=== PATIENT | female | born 1985 | race Caucasian/White ===

== ENCOUNTER 2018-03-21 17:34 | Emergency (ER) | payer OTHER ==
[2018-03-21] MEDS ORDERED: Sodium Chloride 0.9% 1000 ML 1,000 ML IV STA ×2 (18:40→21:18)
--- NOTE | 2018-03-21 18:40 | ERPHSYRPT ---
- History of Present Illness Time Seen by Provider: 03/21/18 18:15 Historian: patient, family Exam Limitations: no limitations Physician History: 32 y/o white female presents with one week h/o diarrhea and crampy abd pain. no vomiting. no fevers. denies cough, cp, sore throat or earaches. no travel outside [place], no recent camping, does not consume well water. no other individuals with similar sx. Timing/Duration: day(s) (7) Activities at Onset: none Quality: cramping Abdominal Pain Onset Location: generalized abdomen Pain Radiation: no radiation Severity of Pain-Max: mild Severity of Pain-Current: mild Modifying Factors: Worsens With: coughing, vomiting Associated Symptoms: diarrhea, No nausea, No vomiting Previous symptoms: no prior history Allergies/Adverse Reactions: latex Allergy (Mild, Verified 12/15/14 17:18) Hives Hx Tetanus, Diphtheria Vaccination/Date Given: No Hx Influenza Vaccination/Date Given: No Hx Pneumococcal Vaccination/Date Given: No - Review of Systems Constitutional: No Symptoms Eyes: No Symptoms Ears, Nose, & Throat: No Symptoms Respiratory: No Symptoms Cardiac: No Symptoms Abdominal/Gastrointestinal: Abdominal Pain (mild cramping ), Diarrhea, No Nausea , No Vomiting Genitourinary Symptoms: No Symptoms Musculoskeletal: No Symptoms Skin: No Symptoms Neurological: No Symptoms Psychological: No Symptoms Endocrine: No Symptoms Hematologic/Lymphatic: No Symptoms Immunological/Allergic: No Symptoms All Other Systems: Reviewed and Negative - Past Medical History Pertinent Past Medical History: No Neurological History: No Pertinent History ENT History: No Pertinent History Cardiac History: No Pertinent History Respiratory History: No Pertinent History Endocrine Medical History: No Pertinent History Musculoskeletal History: No Pertinent History GI Medical History: No Pertinent History History: No Pertinent History Psycho-Social History: No Pertinent History Female Reproductive Disorders: No Pertinent History - Past Surgical History Past Surgical History: Yes Neuro Surgical History: No Pertinent History Cardiac: No Pertinent History Respiratory: No Pertinent History Gastrointestinal: No Pertinent History Genitourinary: No Pertinent History Musculoskeletal: No Pertinent History Female Surgical History: No Pertinent History 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 AT 16- CYST REMOVED FROM THE THROAT - Social History Smoking Status: Never smoker Exposure to second hand smoke: No Drug Use: none Patient Lives Alone: No - Nursing Vital Signs Nursing Vital Signs: Initial Vital Signs Temperature 98.5 F 03/21/18 18:34 Pulse Rate 83 03/21/18 18:34 Respiratory Rate 16 03/21/18 18:34 Blood Pressure 137/67 03/21/18 18:34 O2 Sat by Pulse Oximetry 100 03/21/18 18:34 Pain Scale Pain Intensity 6 - Physical Exam General Appearance: no apparent distress, alert, anxiety Eye Exam: PERRL/EOMI, eyes nml inspection Ears, Nose, Throat Exam: normal ENT inspection, moist mucous membranes Neck Exam: normal inspection, non-tender, supple, full range of motion Respiratory Exam: normal breath sounds, lungs clear, airway intact, No chest tenderness, No respiratory distress, No accessory muscle use, No rhonchi, No wheezing, No stridor Cardiovascular Exam: regular rate/rhythm, normal heart sounds, normal peripheral pulses Gastrointestinal/Abdomen Exam: soft, normal bowel sounds, No tenderness, No guarding, No rebound Pelvic Exam: not done Rectal Exam: not done Back Exam: normal inspection, normal range of motion, No CVA tenderness, No vertebral tenderness Extremity Exam: normal inspection, normal range of motion, pelvis stable Neurologic Exam: alert, oriented x 3, cooperative, wrapper counter II-XII nml as tested Skin Exam: normal color, warm, dry Lymphatic Exam: No adenopathy SpO2 Interpretation: normal Oxygen Delivery: Room Air - Course Nursing assessment & vital signs reviewed: Yes Ordered Tests: Active Orders 24 hr Category Date Time Status Clean Catch Urine Specimen STAT Care 03/21/18 18:40 Active IV Insertion STAT Care 03/21/18 18:40 Active NPO (ED) STAT Care 03/21/18 18:40 Active ABDOMEN AND PELVIS W/0 CONTRAS [CT] Stat Exams 03/21/18 19:15 Taken AMYLASE Stat Lab 03/21/18 18:50 Completed CBC W DIFF Stat Lab 03/21/18 18:50 Completed CMP Stat Lab 03/21/18 18:50 Completed CULTURE,URINE Stat Lab 03/21/18 18:50 Received LIPASE Stat Lab 03/21/18 18:50 Completed Lactic Acid Stat Lab 03/21/18 19:00 Completed UA W/RFX UR CULTURE Stat Lab 03/21/18 18:50 Completed Medication Summary Discontinued Medications Generic Name Dose Route Start Last Admin Trade Name Freq PRN Reason Stop Dose Admin Sodium Chloride 1,000 mls @ 999 mls/hr 03/21/18 18:40 03/21/18 20:51 Sodium Chloride 0.9% 1000 Ml IV 03/21/18 19:40 Infused .Q1H1M STA Infusion Sodium Chloride Confirm 03/21/18 18:48 Sodium Chloride 0.9% 1000 Ml Administered 03/21/18 18:49 Dose 1,000 mls @ ud .ROUTE .STK-MED ONE Lab/Rad Data: Laboratory Result Diagrams 03/21/18 18:50 03/21/18 18:50 Laboratory Results 03/21/18 03/21/18 03/21/18 Range/Units 19:00 18:50 18:50 WBC (4.0-10.5) K/mm3 RBC (4.1-5.4) M/mm3 Hgb (12.0-16.0) gm/dl Hct (35-47) % MCV (78-100) fl MCH (26-32) pg MCHC (32-36) g/dl RDW (11.5-14.0) % Plt Count (150-450) K/mm3 MPV (6-9.5) fl Gran % (36.0-66.0) % Eos # (Auto) (0-0.5) Absolute Lymphs (auto) (1.0-4.6) Absolute Monos (auto) (0.0-1.3) Lymphocytes % (24.0-44.0) % Monocytes % (0.0-12.0) % Eosinophils % (0.00-5.0) % Basophils % (0.0-0.4) % Absolute Granulocytes (1.4-6.9) Basophils # (0-0.4) Sodium 139 (137-145) mmol/L Potassium 4.0 (3.5-5.1) mmol/L Chloride 104 (98-107) mmol/L Carbon Dioxide 27 (22-30) mmol/L Anion Gap 12.9 (5-15) MEQ/L BUN 12 (7-17) mg/dL Creatinine 0.67 (0.52-1.04) mg/dL Estimated GFR > 60.0 ML/MIN Glucose 100 (74-106) mg/dL Lactic Acid 0.7 (0.4-2.0) Calcium 9.7 (8.4-10.2) mg/dL Total Bilirubin 0.70 (0.2-1.3) mg/dL AST 17 (14-36) U/L ALT 18 (0-35) U/L Alkaline Phosphatase 88 (38-126) U/L Serum Total Protein 8.6 H (6.3-8.2) g/dL Albumin 4.5 (3.5-5.0) g/dL Amylase 47 (30-110) U/L Lipase 67 (23-300) U/L Urine Color YELLOW (YELLOW) Urine Appearance SLIGHTLY CLOUDY (CLEAR) Urine pH 5.0 (5-6) Ur Specific [place] 1.026 (1.005-1.025) Urine Protein NEGATIVE (Negative) Urine Ketones NEGATIVE (NEGATIVE) Urine Blood SMALL (0-5) Jeyson/ul Urine Nitrite NEGATIVE (NEGATIVE) Urine Bilirubin NEGATIVE (NEGATIVE) Urine Urobilinogen NEGATIVE (0-1) mg/dL Ur Leukocyte Esterase NEGATIVE (NEGATIVE) Urine WBC (Auto) 6-10 (0-5) /HPF Urine RBC (Auto) 6-10 (0-2) /HPF U Epithel Cells (Auto) MODERATE (FEW) /HPF Urine Bacteria (Auto) FEW (NEGATIVE) /HPF Urine Mucus (Auto) SLIGHT (NEGATIVE) /HPF Urine Culture Reflexed YES (NO) Urine Glucose NEGATIVE (NEGATIVE) mg/dL Slides for Path Review 03/21/18 Range/Units 18:50 WBC 19.3 H (4.0-10.5) K/mm3 RBC 4.58 (4.1-5.4) M/mm3 Hgb 13.7 (12.0-16.0) gm/dl Hct 41.4 (35-47) % MCV 90.4 (78-100) fl MCH 29.9 (26-32) pg MCHC 33.1 (32-36) g/dl RDW 14.0 (11.5-14.0) % Plt Count 580 H (150-450) K/mm3 MPV 11.1 H (6-9.5) fl Gran % 63.1 (36.0-66.0) % Eos # (Auto) 0.25 (0-0.5) Absolute Lymphs (auto) 4.43 (1.0-4.6) Absolute Monos (auto) 2.39 H (0.0-1.3) Lymphocytes % 23.0 L (24.0-44.0) % Monocytes % 12.4 H (0.0-12.0) % Eosinophils % 1.3 (0.00-5.0) % Basophils % 0.2 (0.0-0.4) % Absolute Granulocytes 12.19 H (1.4-6.9) Basophils # 0.03 (0-0.4) Sodium (137-145) mmol/L Potassium (3.5-5.1) mmol/L Chloride (98-107) mmol/L Carbon Dioxide (22-30) mmol/L Anion Gap (5-15) MEQ/L BUN (7-17) mg/dL Creatinine (0.52-1.04) mg/dL Estimated GFR ML/MIN Glucose (74-106) mg/dL Lactic Acid (0.4-2.0) Calcium (8.4-10.2) mg/dL Total Bilirubin (0.2-1.3) mg/dL AST (14-36) U/L ALT (0-35) U/L Alkaline Phosphatase (38-126) U/L Serum Total Protein (6.3-8.2) g/dL Albumin (3.5-5.0) g/dL Amylase (30-110) U/L Lipase (23-300) U/L Urine Color (YELLOW) Urine Appearance (CLEAR) Urine pH (5-6) Ur Specific [place] (1.005-1.025) Urine Protein (Negative) Urine Ketones (NEGATIVE) Urine Blood (0-5) Jeyson/ul Urine Nitrite (NEGATIVE) Urine Bilirubin (NEGATIVE) Urine Urobilinogen (0-1) mg/dL Ur Leukocyte Esterase (NEGATIVE) Urine WBC (Auto) (0-5) /HPF Urine RBC (Auto) (0-2) /HPF U Epithel Cells (Auto) (FEW) /HPF Urine Bacteria (Auto) (NEGATIVE) /HPF Urine Mucus (Auto) (NEGATIVE) /HPF Urine Culture Reflexed (NO) Urine Glucose (NEGATIVE) mg/dL Slides for Path Review YES - Progress Progress: improved (mild), pain not gone completely, re-examined Progress Note: 03/21/18 21:12 pt clinically slowly improved. ct scan abd/pelvis shows picture c/w mesenteric adenitis. however, there is mention of of bowel wall thickening which may be due to nondistension. however, pts wbc is >19,000. therefore, i will tx as colitis. Counseled pt/family regarding: lab results, diagnosis, need for follow-up, rad results - Departure Time of Disposition: 21:15 Departure Disposition: Home Clinical Impression: Colitis, Leukocytosis Condition: Stable Critical Care Time: No Referrals: TRACY WRAY MD [Primary Care Provider] - Additional Instructions: clear liquid diet for 24 hours. advance slowly. follow up with primary doctor if symptoms persist. return to ED for worsening symptoms Prescriptions: Hydrocodone/APAP 5/325 [[place] 5/325 mg] 1 each PO Q8H PRN PRN #10 tablet MDD 3 PRN Reason: Pain Ciprofloxacin [Cipro 500 MG] 500 mg PO BID #14 tablet Metronidazole 500 mg [Flagyl 500 MG] 500 mg PO TID #21 tablet
[2018-03-21] MEDS ORDERED: Sodium Chloride 0.9% 1000 ML 1,000 ML ONE ×2 (18:48→21:39)
[2018-03-21 19:03] LABS: BASOPHIL % 0.2 % (0.0-0.4); Basophil (Absolute #) 0.03 (0-0.4); Eosinophil % 1.3 % (0.00-5.0); Eosinophil (Absolute #) 0.25 (0-0.5); Granulocyte Absolute (ANC) 12.19 (1.4-6.9); Granulocytes % 63.1 % (36.0-66.0); Hematocrit 41.4 % (35-47); Hemoglobin 13.7 gm/dl (12.0-16.0); Lymphocyte (Absolute #) 4.43 (1.0-4.6); Mean Cell Volume 90.4 fl (78-100); Mean Corpuscular Hemoglobin 29.9 pg (26-32); Mean Corpuscular Hgb Concent. 33.1 g/dl (32-36); Mean Platelet Volume 11.1 fl (6-9.5); Monocyte (Absolute #) 2.39 (0.0-1.3); Monocytes % 12.4 % (0.0-12.0); Platelet Count 580 K/mm3 (150-450); Red Blood Count 4.58 M/mm3 (4.1-5.4); White Blood Count 19.3 K/mm3 (4.0-10.5)
[2018-03-21 19:04] LABS: Appearance SLIGHTLY CLOUDY (CLEAR); Bilirubin NEGATIVE (NEGATIVE); Blood SMALL Ery/ul (0-5); Glucose NEGATIVE (NEGATIVE); Ketones NEGATIVE (NEGATIVE); Leukocyte Esterase NEGATIVE (NEGATIVE); Nitrite NEGATIVE (NEGATIVE); Protein,Urine Dip NEGATIVE (Negative); Specific Gravity 1.026 (1.005-1.025); Urobilinogen NEGATIVE mg/dL (0-1)
[2018-03-21 19:14] LABS: ALBUMIN 4.5 g/dL (3.5-5.0); ALKALINE PHOSPHATASE 88 U/L (38-126); AMYLASE 47 U/L (30-110); ANION GAP 12.9 MEQ/L (5-15); BLOOD UREA NITROGEN 12 mg/dL (7-17); CHLORIDE 104 mmol/L (98-107); Calcium 9.7 mg/dL (8.4-10.2); Carbon Dioxide 27 mmol/L (22-30); Creatinine 1 0.67 mg/dL (0.52-1.04); Glucose 100 mg/dL (74-106); LIPASE 67 U/L (23-300); SGOT/AST 17 U/L (14-36); SGPT/ALT 18 U/L (0-35); SODIUM 139 mmol/L (137-145); Total Protein 8.6 g/dL (6.3-8.2)
[2018-03-21 20:58] LABS: Slide Review 1 YES
[2018-03-21] MEDS ORDERED: Hydromorphone 1 mg/ml Ampule IV ONE (21:17)
[2018-03-21] MEDS ORDERED: Flagyl 500 MG PO ONE (21:18)
[2018-03-21] MEDS ORDERED: Cipro 500 MG PO ONE (21:18)
[2018-03-21] MEDS ORDERED: Zofran 4 MG/2 ML VIAL IV ONE (21:28)
[2018-03-21] MEDS ORDERED: Flagyl 500 MG ONE (21:39)
[2018-03-21] MEDS ORDERED: Zofran 4 MG/2 ML VIAL ONE (21:39)
[2018-03-21] MEDS ORDERED: Hydromorphone 1 mg/ml Ampule ONE (21:42)
[2018-03-21] MEDS ORDERED: Cipro 500 MG ONE (21:42)
[2018-03-21 21:55] VITALS: PULSE 65
--- NOTE | 2018-03-21 22:33 | XRAY ---
Indication: General abdominal pain. Diarrhea. Elevated WBC. Multiple contiguous axial images obtained through the abdomen and pelvis without contrast as ordered. Comparison: None. Lung bases demonstrates minimal bibasilar dependent atelectasis and left base calcified granuloma. No infiltrate or effusion. Heart is not enlarged. Small hiatal hernia. Noncontrasted stomach and bowel loops appear nonobstructed. Normal appendix. No free fluid/air. Previous splenectomy. Multiple scattered subcentimeter mesenteric nodes favoring adenitis. Remaining liver, gallbladder, pancreas, adrenal glands, kidneys, ureters, bladder, uterus, and aorta appear unremarkable for noncontrast exam. Osseous structures intact. No ventral or inguinal hernias. Impression: 1. Scattered small mesenteric nodes favoring mesenteric adenitis. 2. Small hiatal hernia. 3. Remaining CT abdomen/pelvis without contrast exam is negative. Comment: Preliminary interpretation was made by [facility]. No critical discrepancy. CTDI 21.34
[2018-03-21 22:53] VITALS: BP 132/98; O2SAT 98
== END 2018-03-21 23:22 | disposition home or self-care (01) ==
LOC: ED 17:34
DX: K52.9 Noninfective gastroenteritis and colitis, unspecified (principal); D72.829 Elevated white blood cell count, unspecified; R10.84 Generalized abdominal pain
CPT/HCPCS: 36000; 36415; 74176; 80053; 81001; 82150; 83605; 83690; 85025; 87086; 96360; 96374; 96375; 99284; J1170; J2405; A9270-GY

== ENCOUNTER 2018-04-09 20:35 | Emergency (ER) | payer OTHER ==
[2018-04-09] MEDS ORDERED: Sodium Chloride 0.9% 1000 ML 1,000 ML IV STA (21:00)
[2018-04-09] MEDS ORDERED: Sodium Chloride 0.9% 1000 ML 1,000 ML ONE (21:03)
--- NOTE | 2018-04-09 21:05 | ERPHSYRPT ---
- History of Present Illness Time Seen by Provider: 04/09/18 20:57 Historian: patient Exam Limitations: no limitations Patient Subjective Stated Complaint: pt is alert and oriented. pt is ambulatory with a steady gait. pt states that she has been having diarrhea for a month and began having vomiting this afternoon. pt states that she has vomited 3-4 times. pt bowel sounds present and active x4. pt abdomen tender to palpation on right upper and lower quadrants. Triage Nursing Assessment: see above Physician History: 32-year-old white female who was seen here on March 21, 2018 secondary to diarrhea, diagnosed with mesenteric adenitis placed on Cipro and Flagyl. And has subsequently been seen by her family doctor 2 days ago told that she has a colitis and states that her family doctor's trying to schedule her an for endoscopy. Arrives with complaints of continued diarrhea she states she vomited one time today she states she is having lower abdominal pain in the right lower and left lower abdomen. Past medical history is negative. Past surgical history splenectomy, cyst removed from her throat. Social history denies tobacco alcohol or illicit drug use Timing/Duration: other (symptoms for a month) Quality: cramping Abdominal Pain Onset Location: RLQ, LLQ Severity of Pain-Max: moderate Severity of Pain-Current: mild Modifying Factors: Improves With: vomiting (vomited one time today). Worsens With: analgesics, antacids, breathing, coughing, defecating, eating, exercise, lying down, movement, palpation, rest, urinating, position, walking Associated Symptoms: diarrhea, nausea, vomiting, No back, No chest pain, No diaphoresis, No fever/chills, No fatigue, No headache, No heartburn, No loss of appetite, No neck pain, No rash, No shortness of breath, No syncope, No weakness Previous symptoms: same symptoms as today (seen by this ER March 21 for same , seen by her family doctor 2 days ago for same) Allergies/Adverse Reactions: latex Allergy (Mild, Verified 12/15/14 17:18) Hives shellfish derived Allergy (Verified 04/09/18 20:55) Hx Tetanus, Diphtheria Vaccination/Date Given: No Hx Influenza Vaccination/Date Given: No Hx Pneumococcal Vaccination/Date Given: No Immunizations Up to Date: Yes - Review of Systems Constitutional: No Fever, No Chills Eyes: No Symptoms Ears, Nose, & Throat: No Symptoms Respiratory: No Cough, No Dyspnea Cardiac: No Chest Pain, No Edema, No Syncope Abdominal/Gastrointestinal: Abdominal Pain (Lower abdominal pain), Nausea, Vomiting, Diarrhea Genitourinary Symptoms: No Dysuria Musculoskeletal: No Back Pain, No Neck Pain Skin: No Rash Neurological: No Dizziness, No Focal Weakness, No Sensory Changes Psychological: No Symptoms Endocrine: No Symptoms All Other Systems: Reviewed and Negative - Past Medical History Pertinent Past Medical History: No Neurological History: No Pertinent History ENT History: No Pertinent History Cardiac History: No Pertinent History Respiratory History: No Pertinent History Endocrine Medical History: No Pertinent History Musculoskeletal History: No Pertinent History GI Medical History: Colitis History: No Pertinent History Psycho-Social History: No Pertinent History Female Reproductive Disorders: No Pertinent History - Past Surgical History Past Surgical History: Yes Neuro Surgical History: No Pertinent History Cardiac: No Pertinent History Respiratory: No Pertinent History Gastrointestinal: No Pertinent History Genitourinary: No Pertinent History Musculoskeletal: No Pertinent History Female Surgical History: No Pertinent History 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 AT 16- CYST REMOVED FROM THE THROAT - Social History Smoking Status: Never smoker Exposure to second hand smoke: No Drug Use: none Patient Lives Alone: No - Female History Hx Last Menstrual Period: 04/09/18 Hx Now: No - Nursing Vital Signs Nursing Vital Signs: Initial Vital Signs Temperature 98.2 F 04/09/18 20:47 Pulse Rate 75 04/09/18 20:47 Respiratory Rate 16 04/09/18 20:47 Blood Pressure 137/80 04/09/18 20:47 O2 Sat by Pulse Oximetry 96 04/09/18 20:47 Pain Scale Pain Intensity 7 - Physical Exam General Appearance: no apparent distress, alert Eye Exam: PERRL/EOMI, eyes nml inspection Ears, Nose, Throat Exam: normal ENT inspection, pharynx normal, moist mucous membranes Neck Exam: normal inspection, non-tender, supple, full range of motion Respiratory Exam: normal breath sounds, lungs clear, No respiratory distress Cardiovascular Exam: regular rate/rhythm, normal heart sounds Gastrointestinal/Abdomen Exam: soft, normal bowel sounds, tenderness (tender in the lower abdomen with palpation), No distention, No mass, No guarding, No ecchymosis, No pulsatile mass, No rebound, No hernia, No hepatomegaly, No organomegaly, No splenomegaly Back Exam: normal inspection, normal range of motion, No CVA tenderness, No vertebral tenderness Extremity Exam: normal inspection, normal range of motion, pelvis stable Neurologic Exam: alert, oriented x 3, cooperative, nib finisher II-XII nml as tested, normal mood/affect, nml cerebellar function, sensation nml, No motor deficits Skin Exam: normal color, warm, dry SpO2 Interpretation: normal (96%) SpO2: 96 Oxygen Delivery: Room Air - Course Nursing assessment & vital signs reviewed: Yes - CT Exams Abdomen/Pelvis CT Interpretation: Tele-radiologist Report (CT abdomen and pelvis: Impression 1 mild descending and sigmoid colon wall thickening suggestive of colitis.2. Left lower lobe calcified granulomas.), appendicitis Ordered Tests: Active Orders 24 hr Category Date Time Status IV Insertion STAT Care 04/09/18 20:56 Active ABDOMEN AND PELVIS W/0 CONTRAS [CT] Stat Exams 04/09/18 22:11 Taken AMYLASE Stat Lab 04/09/18 21:15 Completed CBC W DIFF Stat Lab 04/09/18 21:15 Completed CMP Stat Lab 04/09/18 21:15 Completed CULTURE,URINE Stat Lab 04/09/18 21:20 Received HCG QUALITATIVE,SERUM Stat Lab 04/09/18 21:15 Completed LIPASE Stat Lab 04/09/18 21:15 Completed UA W/RFX UR CULTURE Stat Lab 04/09/18 21:20 Completed Medication Summary Discontinued Medications Generic Name Dose Route Start Last Admin Trade Name Freq PRN Reason Stop Dose Admin Sodium Chloride 1,000 mls @ 999 mls/hr 04/09/18 21:00 04/09/18 22:07 Sodium Chloride 0.9% 1000 Ml IV 04/09/18 22:00 Infused .Q1H1M STA Infusion Sodium Chloride Confirm 04/09/18 21:03 Sodium Chloride 0.9% 1000 Ml Administered 04/09/18 21:04 Dose 1,000 mls @ ud .ROUTE .STK-MED ONE Metronidazole 500 mg 04/09/18 23:53 04/10/18 00:07 Flagyl 500 Mg PO 04/09/18 23:54 500 mg STAT ONE Administration Metronidazole Confirm 04/10/18 00:07 Flagyl 500 Mg Administered 04/10/18 00:08 Dose 500 mg .ROUTE .STK-MED ONE Lab/Rad Data: Laboratory Result Diagrams 04/09/18 21:15 01/12/19 21:15 Laboratory Results 04/09/18 04/09/18 04/09/18 Range/Units 21:20 21:15 21:15 WBC (4.0-10.5) K/mm3 RBC (4.1-5.4) M/mm3 Hgb (12.0-16.0) gm/dl Hct (35-47) % MCV (78-100) fl MCH (26-32) pg MCHC (32-36) g/dl RDW (11.5-14.0) % Plt Count (150-450) K/mm3 MPV (6-9.5) fl Gran % (36.0-66.0) % Eos # (Auto) (0-0.5) Absolute Lymphs (auto) (1.0-4.6) Absolute Monos (auto) (0.0-1.3) Lymphocytes % (24.0-44.0) % Monocytes % (0.0-12.0) % Eosinophils % (0.00-5.0) % Basophils % (0.0-0.4) % Absolute Granulocytes (1.4-6.9) Basophils # (0-0.4) Sodium 139 (137-145) mmol/L Potassium 3.8 (3.5-5.1) mmol/L Chloride 103 (98-107) mmol/L Carbon Dioxide 25 (22-30) mmol/L Anion Gap 14.9 (5-15) MEQ/L BUN 12 (7-17) mg/dL Creatinine 0.79 (0.52-1.04) mg/dL Estimated GFR > 60.0 ML/MIN Glucose 116 H (74-106) mg/dL Calcium 9.4 (8.4-10.2) mg/dL Total Bilirubin 0.60 (0.2-1.3) mg/dL AST 17 (14-36) U/L ALT 18 (0-35) U/L Alkaline Phosphatase 69 (38-126) U/L Serum Total Protein 8.4 H (6.3-8.2) g/dL Albumin 4.3 (3.5-5.0) g/dL Amylase 54 (30-110) U/L Lipase 93 (23-300) U/L Serum , Qual NEGATIVE (Negative) Urine Color LIGHT RED (YELLOW) Urine Appearance CLOUDY (CLEAR) Urine pH 5.0 (5-6) Ur Specific [place] 1.029 (1.005-1.025) Urine Protein 100 (Negative) Urine Ketones NEGATIVE (NEGATIVE) Urine Blood LARGE (0-5) Jeyson/ul Urine Nitrite NEGATIVE (NEGATIVE) Urine Bilirubin NEGATIVE (NEGATIVE) Urine Urobilinogen NEGATIVE (0-1) mg/dL Ur Leukocyte Esterase TRACE (NEGATIVE) Urine WBC (Auto) 3-5 (0-5) /HPF Urine RBC (Auto) >101 (0-2) /HPF U Epithel Cells (Auto) RARE (FEW) /HPF Urine Bacteria (Auto) RARE (NEGATIVE) /HPF Urine Culture Reflexed YES (NO) Urine Glucose NEGATIVE (NEGATIVE) mg/dL 04/09/18 Range/Units 21:15 WBC 14.6 H (4.0-10.5) K/mm3 RBC 4.40 (4.1-5.4) M/mm3 Hgb 13.3 (12.0-16.0) gm/dl Hct 39.8 (35-47) % MCV 90.5 (78-100) fl MCH 30.2 (26-32) pg MCHC 33.4 (32-36) g/dl RDW 14.1 H (11.5-14.0) % Plt Count 544 H (150-450) K/mm3 MPV 11.5 H (6-9.5) fl Gran % 63.5 (36.0-66.0) % Eos # (Auto) 0.18 (0-0.5) Absolute Lymphs (auto) 3.08 (1.0-4.6) Absolute Monos (auto) 2.00 H (0.0-1.3) Lymphocytes % 21.1 L (24.0-44.0) % Monocytes % 13.7 H (0.0-12.0) % Eosinophils % 1.2 (0.00-5.0) % Basophils % 0.5 (0.0-0.4) % Absolute Granulocytes 9.30 H (1.4-6.9) Basophils # 0.07 (0-0.4) Sodium (137-145) mmol/L Potassium (3.5-5.1) mmol/L Chloride (98-107) mmol/L Carbon Dioxide (22-30) mmol/L Anion Gap (5-15) MEQ/L BUN (7-17) mg/dL Creatinine (0.52-1.04) mg/dL Estimated GFR ML/MIN Glucose (74-106) mg/dL Calcium (8.4-10.2) mg/dL Total Bilirubin (0.2-1.3) mg/dL AST (14-36) U/L ALT (0-35) U/L Alkaline Phosphatase (38-126) U/L Serum Total Protein (6.3-8.2) g/dL Albumin (3.5-5.0) g/dL Amylase (30-110) U/L Lipase (23-300) U/L Serum , Qual (Negative) Urine Color (YELLOW) Urine Appearance (CLEAR) Urine pH (5-6) Ur Specific [place] (1.005-1.025) Urine Protein (Negative) Urine Ketones (NEGATIVE) Urine Blood (0-5) Jeyson/ul Urine Nitrite (NEGATIVE) Urine Bilirubin (NEGATIVE) Urine Urobilinogen (0-1) mg/dL Ur Leukocyte Esterase (NEGATIVE) Urine WBC (Auto) (0-5) /HPF Urine RBC (Auto) (0-2) /HPF U Epithel Cells (Auto) (FEW) /HPF Urine Bacteria (Auto) (NEGATIVE) /HPF Urine Culture Reflexed (NO) Urine Glucose (NEGATIVE) mg/dL - Progress Progress: improved Progress Note: 04/09/18 22:10 Patient with elevated white count. Initially stated she had lower abdominal pain now states she has upper abdominal pain. We'll go ahead and obtain CT abdomen without contrast. 04/09/18 23:49 Patient appears to be stable CT of the abdomen remarkable for mild descending and sigmoid colon wall thickening suggestive of colitis. Also left lower lobe calcified granulomas. Will place patient on Flagyl clear liquids. Patient follow-up with her family doctor. - Departure Time of Disposition: 23:55 Departure Disposition: Home Clinical Impression: Colitis Diarrhea Qualifiers: Diarrhea type: unspecified type Qualified Code(s): R19.7 - Diarrhea, unspecified Condition: Fair Critical Care Time: No Referrals: TRACY WRAY MD [Primary Care Provider] - Instructions: Irritable Bowel Syndrome Additional Instructions: Return home. Plenty of fluids, clear fluids only 24-48 hours if diarrhea, nausea or vomiting or abdominal pain, Flagyl 500 mg orally 3 times a day for 7 days, Follow-up with your family doctor, Return for acute distress or for severe symptoms, Prescriptions: Metronidazole 500 mg [Flagyl 500 MG] 500 mg PO TID #30 tablet
[2018-04-09 21:18] LABS: BASOPHIL % 0.5 % (0.0-0.4); Basophil (Absolute #) 0.07 (0-0.4); Eosinophil % 1.2 % (0.00-5.0); Eosinophil (Absolute #) 0.18 (0-0.5); Granulocytes % 63.5 % (36.0-66.0); Hematocrit 39.8 % (35-47); Hemoglobin 13.3 gm/dl (12.0-16.0); Lymphocyte (Absolute #) 3.08 (1.0-4.6); Lymphocytes % 21.1 % (24.0-44.0); Mean Cell Volume 90.5 fl (78-100); Mean Corpuscular Hemoglobin 30.2 pg (26-32); Mean Corpuscular Hgb Concent. 33.4 g/dl (32-36); Mean Platelet Volume 11.5 fl (6-9.5); Monocytes % 13.7 % (0.0-12.0); Platelet Count 544 K/mm3 (150-450); Red Cell Distribution Width 14.1 % (11.5-14.0); White Blood Count 14.6 K/mm3 (4.0-10.5)
[2018-04-09 21:29] LABS: ALBUMIN 4.3 g/dL (3.5-5.0); ALKALINE PHOSPHATASE 69 U/L (38-126); AMYLASE 54 U/L (30-110); ANION GAP 14.9 MEQ/L (5-15); BLOOD UREA NITROGEN 12 mg/dL (7-17); CHLORIDE 103 mmol/L (98-107); Calcium 9.4 mg/dL (8.4-10.2); Carbon Dioxide 25 mmol/L (22-30); Creatinine 1 0.79 mg/dL (0.52-1.04); Glucose 116 mg/dL (74-106); LIPASE 93 U/L (23-300); Potassium 3.8 mmol/L (3.5-5.1); SGOT/AST 17 U/L (14-36); SGPT/ALT 18 U/L (0-35); SODIUM 139 mmol/L (137-145); Total Protein 8.4 g/dL (6.3-8.2)
[2018-04-09 21:30] LABS: Appearance CLOUDY (CLEAR); Bacteria RARE /HPF (NEGATIVE); Bilirubin NEGATIVE (NEGATIVE); Blood LARGE Ery/ul (0-5); Epithelial Cells RARE /HPF (FEW); Glucose NEGATIVE (NEGATIVE); Ketones NEGATIVE (NEGATIVE); Leukocyte Esterase TRACE (NEGATIVE); Nitrite NEGATIVE (NEGATIVE); Protein,Urine Dip 100 (Negative); Specific Gravity 1.029 (1.005-1.025); Urobilinogen NEGATIVE mg/dL (0-1)
[2018-04-09 21:31] LABS: RBC >101 /HPF (0-2)
[2018-04-09 22:57] VITALS: O2SAT 96
[2018-04-09] MEDS ORDERED: Flagyl 500 MG PO ONE (23:53)
[2018-04-10] MEDS ORDERED: Flagyl 500 MG ONE (00:07)
[2018-04-10 00:10] VITALS: BP 117/89; PULSE 66
--- NOTE | 2018-04-10 08:34 | XRAY ---
Indication: Upper abdominal pain, nausea, vomiting, diarrhea one month. Elevated WBC. Multiple contiguous axial images obtained through the abdomen and pelvis without contrast as ordered. Comparison: March 21, 2018. Lung bases demonstrate stable left base calcified granulomas. No infiltrate or effusion. Heart is not enlarged. Stable small hiatal hernia. Stomach is distended with food/fluid. Noncontrasted stomach and bowel loops appear nonobstructed. Normal appendix. No free fluid/air. Again there are scattered subcentimeter mesenteric nodes favoring adenitis. Gallbladder contracted without gallstones. Again splenectomy. Remaining liver, pancreas, adrenal glands, kidneys, ureters, bladder, uterus, and aorta appear unremarkable for noncontrasted exam. Osseous structures intact. Impression: 1. Again scattered small mesenteric nodes favoring mesenteric adenitis. 2. Stable small hiatal hernia. 3. Remaining CT abdomen/pelvis without contrast exam is negative. Comment: Preliminary interpretation was made by [facility] who reports descending/sigmoid colitis which I cannot appreciate but reasonably explained by incomplete distention. Mesenteric nodes also not reported and not felt to be critical. CTDI 23.15
== END 2018-04-10 00:18 | disposition home or self-care (01) ==
LOC: ED 20:35
DX: K52.9 Noninfective gastroenteritis and colitis, unspecified (principal); R10.32 Left lower quadrant pain; R10.31 Right lower quadrant pain; R11.2 Nausea with vomiting, unspecified
CPT/HCPCS: 36000; 36415; 74176; 80053; 81001; 81025; 82150; 83690; 85025; 87086; 96360; 99284; A9270-GY

== ENCOUNTER 2018-06-21 05:43 | Day surgery (SDC) | payer OTHER ==
[2018-06-21] MEDS ORDERED: Ketamine HCl 50 MG/ML IJ ONE (05:44)
[2018-06-21] MEDS ORDERED: DIPRIVAN 200 MG/20 ML IV ONE (05:44)
[2018-06-21] MEDS ORDERED: Lactated Ringers 1,000 ML IV SCH (06:30)
[2018-06-21 09:01] VITALS: O2SAT 97
[2018-06-21 09:12] VITALS: BP 133/80; PULSE 76
--- NOTE | 2018-06-21 09:38 | OP ---
SURGERY DATE/TIME: 06/21/2018 0756 PREOPERATIVE DIAGNOSIS: Chronic diarrhea. POSTOPERATIVE DIAGNOSIS: Mild colitis. PROCEDURE: Colonoscopy with biopsy. SURGEON: Dr. Dennis. ANESTHESIA: MAC. Medications given by anesthesia department. HISTORY: The patient is a 33 year-old white female who presents for colonoscopic evaluation. She had problems with diarrhea over the past several months. She reports three to four stools a day but at times waking her up at night. She denies any blood in the stool. The patient is felt to need to have endoscopic evaluation. She was appraised of the risks of the procedure including the risk of perforation, phlebitis, untoward reaction to medication, bleeding and missed lesions. The patient verbalized her understanding and desired to have the procedure performed. DESCRIPTION OF PROCEDURE: The patient was given the medications by the anesthesia department. She had continuous pulse oximetry, ECG monitoring, intermittent blood pressure monitoring and tidal CO2 monitoring during the examination. She was placed in the left lateral decubitus position. A digital rectal examination was performed and revealed normal anal sphincter tone and no masses. The flexible Olympus pediatric colonoscope was used to intubate the rectum. A view of the colon was developed sequentially to the cecum including a short distance into the terminal ileum. Upon insertion and withdrawal, including a retroflex view in the rectum, no mucosal lesions were encountered. Biopsies were obtained in the sigmoid colon due to the appearance of hyperemia to rule out the presence of underlying collagenous colitis or mild ulcerative colitis. The scope was removed from the patient who tolerated the procedure well and was sent back to OP recovery in good condition. The prep was noted to be fair to good.
== END 2018-06-21 09:24 | disposition home or self-care (01) ==
LOC: SDC 05:43
PROVIDERS: ATTEND Family Medicine
DX: K52.9 Noninfective gastroenteritis and colitis, unspecified (principal)
CPT/HCPCS: 88305; J2704

== ENCOUNTER 2018-06-23 11:39 | Emergency (ER) | payer OTHER ==
--- NOTE | 2018-06-23 11:44 | ERPHSYRPT ---
- History of Present Illness Time Seen by Provider: 06/23/18 11:43 Historian: patient Exam Limitations: no limitations Physician History: 33 y/o white female presents with crampy abd pain and watery diarrhea. pt had same sx prior to a colonoscopy that was performed by dr. early on 06/21/18. pt was on a pre procedural bowel prep. pt denies vomiting. pt was told to go to ED if pt has persistent diarrhea. pt does not know procedural findings and was not placed on any medications. pt has a follow up appt next week with dr. early. Timing/Duration: other (chronic) Quality: cramping (mild) Abdominal Pain Onset Location: suprapubic Pain Radiation: no radiation Severity of Pain-Max: mild Severity of Pain-Current: mild Modifying Factors: Worsens With: vomiting Associated Symptoms: diarrhea, No loss of appetite, No nausea, No vomiting Previous symptoms: same symptoms as today Allergies/Adverse Reactions: latex Allergy (Mild, Verified 06/21/18 06:26) Hives shellfish derived Allergy (Verified 06/21/18 06:26) Hx Tetanus, Diphtheria Vaccination/Date Given: No Hx Influenza Vaccination/Date Given: No Hx Pneumococcal Vaccination/Date Given: No - Review of Systems Constitutional: No Symptoms Eyes: No Symptoms Ears, Nose, & Throat: No Symptoms Respiratory: No Symptoms Abdominal/Gastrointestinal: Abdominal Pain (mild suprapubic), Diarrhea, No Nausea, No Vomiting Genitourinary Symptoms: No Symptoms Musculoskeletal: No Symptoms Skin: No Symptoms Neurological: No Symptoms Psychological: No Symptoms Endocrine: No Symptoms Hematologic/Lymphatic: No Symptoms Immunological/Allergic: No Symptoms All Other Systems: Reviewed and Negative - Past Medical History Pertinent Past Medical History: Yes Neurological History: No Pertinent History ENT History: No Pertinent History Cardiac History: No Pertinent History Respiratory History: No Pertinent History Endocrine Medical History: No Pertinent History Musculoskeletal History: No Pertinent History GI Medical History: Colitis History: No Pertinent History Psycho-Social History: No Pertinent History Female Reproductive Disorders: No Pertinent History - Past Surgical History Past Surgical History: Yes Neuro Surgical History: No Pertinent History Cardiac: No Pertinent History Respiratory: No Pertinent History Gastrointestinal: No Pertinent History Genitourinary: No Pertinent History Musculoskeletal: No Pertinent History Female Surgical History: No Pertinent History 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 AT 16- CYST REMOVED FROM THE THROAT. cyst removed from left wrist feb 13 2019 - Social History Smoking Status: Never smoker Exposure to second hand smoke: No Drug Use: none Patient Lives Alone: No - Nursing Vital Signs Nursing Vital Signs: Initial Vital Signs Temperature 98.4 F 06/23/18 11:57 Pulse Rate 68 06/23/18 11:57 Respiratory Rate 16 06/23/18 11:57 Blood Pressure 124/68 06/23/18 11:57 O2 Sat by Pulse Oximetry 99 06/23/18 11:57 Pain Scale Pain Intensity 4 - Physical Exam General Appearance: no apparent distress, alert, anxiety Eye Exam: PERRL/EOMI Ears, Nose, Throat Exam: normal ENT inspection, moist mucous membranes Neck Exam: normal inspection, non-tender, supple, full range of motion Respiratory Exam: normal breath sounds, airway intact, No chest tenderness, No respiratory distress Cardiovascular Exam: regular rate/rhythm, normal heart sounds, normal peripheral pulses Gastrointestinal/Abdomen Exam: soft, normal bowel sounds, No tenderness, No guarding, No rebound Pelvic Exam: not done Rectal Exam: not done Back Exam: normal inspection, normal range of motion, No CVA tenderness, No vertebral tenderness Extremity Exam: normal inspection, normal range of motion, pelvis stable Neurologic Exam: alert, oriented x 3, cooperative, 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 Counseled pt/family regarding: diagnosis, need for follow-up, rad results - Departure Time of Disposition: 13:05 Departure Disposition: Home Clinical Impression: Diarrhea, Colitis Condition: Stable Critical Care Time: No Referrals: TRACY WRAY MD [Primary Care Provider] - Additional Instructions: drink plenty of fluids. take medications as prescribed. keep your appointment next week with your doctor for further management. Prescriptions: Metronidazole 500 mg [Flagyl 500 MG] 500 mg PO TID #21 tablet
[2018-06-23 12:03] VITALS: BP 124/68; PULSE 68; O2SAT 99
--- NOTE | 2018-06-23 12:54 | XRAY ---
Indication: Abdomen cramping and diarrhea post colonoscopy. Comparison: None 2 views of the abdomen nonacute nonobstructed. Solid organs and osseous structures unremarkable. Single PA chest demonstrates normal heart, lungs, and bony thorax. Impression: Negative abdomen. Normal 1 view chest.
== END 2018-06-23 13:53 | disposition home or self-care (01) ==
LOC: ED 11:39
DX: R19.7 Diarrhea, unspecified (principal); K52.9 Noninfective gastroenteritis and colitis, unspecified
CPT/HCPCS: 74022; 99283

== ENCOUNTER 2019-10-20 18:17 | Emergency (ER) | payer OTHER ==
[2019-10-20 18:33] VITALS: O2SAT 96
[2019-10-20] MEDS ORDERED: Sodium Chloride 0.9% 1000 ML 1,000 ML IV STA (19:01)
[2019-10-20] MEDS ORDERED: TORAdol 30 mg Injection IV ONE (19:01)
[2019-10-20] MEDS ORDERED: TYLENOL 325 MG PO ONE (19:01)
[2019-10-20] MEDS ORDERED: BENADRYL 50 MG/ML IV ONE (19:01)
[2019-10-20] MEDS ORDERED: Reglan 10 MG/2 ML IV ONE (19:01)
[2019-10-20] MEDS ORDERED: BENADRYL 50 MG/ML ONE (19:12)
[2019-10-20] MEDS ORDERED: TORAdol 30 mg Injection ONE (19:12)
[2019-10-20] MEDS ORDERED: Sodium Chloride 0.9% 1000 ML 1,000 ML ONE (19:13)
[2019-10-20] MEDS ORDERED: Reglan 10 MG/2 ML ONE (19:13)
[2019-10-20] MEDS ORDERED: TYLENOL 325 MG ONE (19:13)
--- NOTE | 2019-10-20 19:16 | ERPHSYRPT ---
- History of Present Illness Time Seen by Provider: 10/20/19 18:42 Source: patient Exam Limitations: no limitations Patient Subjective Stated Complaint: Pt states "I have had a headache, I am getting dizzy, my blood pressure has been going up and down and I just want to get checked." Triage Nursing Assessment: Pt presented alert and oriented X 3, skin pwd Pt ambulates with an upright steady gait, able to speak in clear full sentences pt in no apparent respiratory distress. Pt squinting slightly. Physician History: 34 years old female with history of uncontrolled migraine with almost 1 episode every day presented in the ER with more than 1 month history of gradually worsening headache and for the last couple of days she is having some dizziness with some visual spots whenever in bright light. Described this is the worst headache of her life, 8/10 intensity aggravated with bright light, movements/noise and partial relief with beings in the cool dark place. She has been taking [id number] medication with no significant relief. Associated nausea and occasional vomiting. Denies any neck pain or stiffness. No fever or chills reported. Timing/Duration: day(s) (2), intermittent, gradual onset, worse Quality: sharpness Head Pain Location: global Severity of Pain-Max: severe Severity of Pain-Current: moderate Recent Head Trauma: no recent headache/trauma, frequent headaches, chronic headaches Modifying Factors: Improves With: exposure to light, movement Associated Symptoms: dizziness, nausea/vomiting, sensitive to light, No facial pain, No fever/chills, No light-headedness, No loss of consciousness, No numbness in legs/feet, No sinus infection, No stiff neck, No trouble walking, No visual disturbance, No weakness Previous symptoms: same symptoms as today Allergies/Adverse Reactions: latex Allergy (Mild, Verified 06/21/18 06:26) Hives shellfish derived Allergy (Verified 06/21/18 06:26) Home Medications: No Reportable Medications [No Reported Medications] 10/20/19 [History] Hx Tetanus, Diphtheria Vaccination/Date Given: Yes Hx Influenza Vaccination/Date Given: Yes Hx Pneumococcal Vaccination/Date Given: No Immunizations Up to Date: Yes Travel Risk - International Travel Have you traveled outside of the country in past 3 weeks: No - Coronavirus Screening Are you exhibiting any of the following symptoms?: No Close contact with a COVID-19 positive Pt in past 14-21 Days: No - Review of Systems Constitutional: No Symptoms Eyes: No Symptoms Ears, Nose, & Throat: No Symptoms Respiratory: No Symptoms Cardiac: No Symptoms Abdominal/Gastrointestinal: Nausea, Vomiting Genitourinary Symptoms: No Symptoms Musculoskeletal: No Symptoms Skin: No Symptoms Neurological: Dizziness, Headache Psychological: No Symptoms Endocrine: No Symptoms Hematologic/Lymphatic: No Symptoms Immunological/Allergic: No Symptoms - Past Medical History Pertinent Past Medical History: Yes Neurological History: No Pertinent History ENT History: No Pertinent History Cardiac History: No Pertinent History Respiratory History: No Pertinent History Endocrine Medical History: No Pertinent History Musculoskeletal History: No Pertinent History GI Medical History: Colitis History: No Pertinent History Psycho-Social History: No Pertinent History Female Reproductive Disorders: No Pertinent History - Past Surgical History Past Surgical History: Yes Neuro Surgical History: No Pertinent History Cardiac: No Pertinent History Respiratory: No Pertinent History Gastrointestinal: No Pertinent History Genitourinary: No Pertinent History Musculoskeletal: No Pertinent History Female Surgical History: No Pertinent History 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 AT 16- CYST REMOVED FROM THE THROAT. cyst removed from left wrist may 11 2018 - Social History Smoking Status: Never smoker Exposure to second hand smoke: Yes Drug Use: none Patient Lives Alone: Yes - Female History Hx Last Menstrual Period: 10/20/2019 Hx Now: No - Nursing Vital Signs Nursing Vital Signs: Initial Vital Signs Temperature 98.1 F 10/20/19 18:27 Pulse Rate 85 10/20/19 18:27 Respiratory Rate 20 10/20/19 18:27 Blood Pressure 125/88 10/20/19 18:27 O2 Sat by Pulse Oximetry 96 10/20/19 18:27 Pain Scale Pain Intensity 10 - Physical Exam General Appearance: no apparent distress Eye Exam: PERRL/EOMI, eyes nml inspection Ears, Nose, Throat Exam: normal ENT inspection, TMs normal, pharynx normal Neck Exam: normal inspection, non-tender, supple, full range of motion Respiratory Exam: normal breath sounds, lungs clear Cardiovascular Exam: regular rate/rhythm, normal heart sounds Gastrointestinal/Abdominal Exam: soft, normal bowel sounds, No tenderness Back Exam: normal inspection Extremity Exam: normal inspection, normal range of motion Mental Status Exam: alert, oriented x 3, cooperative anodizer Exam: normal hearing, normal speech, PERRL, No abnormal pupil position, No facial droop, No facial weakness, No gaze palsy Coordination/Gait Exam: normal finger to nose, normal gait, normal cerebellar function, negative Romberg's sign Motor/Sensory Exam: no motor deficit, no sensory deficit, no pronator drift, negative Babinski's sign DTR Exam: bicep (R): 2+, bicep (L): 2+, knee (R): 2+, knee (L): 2+ Skin Exam: normal color SpO2 Interpretation: normal SpO2: 96 O2 Delivery: Room Air Ordered Tests: Active Orders 24 hr Category Date Time Status HEAD WITHOUT CONTRAST [CT] Stat Exams 10/20/19 19:03 Taken HCG,QUALITATIVE URINE Stat Lab 10/20/19 20:05 Ordered Medication Summary Discontinued Medications Generic Name Dose Route Start Last Admin Trade Name Funmi PRN Reason Stop Dose Admin Acetaminophen 975 mg 10/20/19 19:01 10/20/19 19:15 Tylenol 325 Mg PO 10/20/19 19:02 975 mg STAT ONE Administration Acetaminophen Confirm 10/20/19 19:13 Tylenol 325 Mg Administered 10/20/19 19:14 Dose 975 mg .ROUTE .STK-MED ONE Diphenhydramine HCl 25 mg 10/20/19 19:01 10/20/19 19:15 Benadryl 50 Mg/Ml IV 10/20/19 19:02 25 mg STAT ONE Administration Diphenhydramine HCl Confirm 10/20/19 19:12 Benadryl 50 Mg/Ml Administered 10/20/19 19:13 Dose 50 mg .ROUTE .STK-MED ONE Sodium Chloride 1,000 mls @ 999 mls/hr 10/20/19 19:01 10/20/19 19:15 Sodium Chloride 0.9% 1000 Ml IV 10/20/19 20:01 999 mls/hr .Q1H1M STA Administration Sodium Chloride Confirm 10/20/19 19:13 Sodium Chloride 0.9% 1000 Ml Administered 10/20/19 19:14 Dose 1,000 mls @ ud .ROUTE .STK-MED ONE Ketorolac Tromethamine 30 mg 10/20/19 19:01 10/20/19 19:15 Toradol 30 Mg Injection IV 10/20/19 19:02 30 mg STAT ONE Administration Ketorolac Tromethamine Confirm 10/20/19 19:12 Toradol 30 Mg Injection Administered 10/20/19 19:13 Dose 30 mg .ROUTE .STK-MED ONE Metoclopramide HCl 10 mg 10/20/19 19:01 10/20/19 19:15 Reglan 10 Mg/2 Ml IV 10/20/19 19:02 10 mg STAT ONE Administration Metoclopramide HCl Confirm 10/20/19 19:13 Reglan 10 Mg/2 Ml Administered 10/20/19 19:14 Dose 10 mg .ROUTE .STK-MED ONE - Progress Progress: improved, re-examined Air Movement: good Progress Note: 10/20/19 21:06 34 years old is evaluated for migraine headaches. Patient described this is the worst headache of her life. She is given IV fluid and migraine cocktail with Toradol/Benadryl/Reglan, on reevaluation her headache is much improved. She is offered some pain medicine to go home but she does not want it. I have obtained CT head which showed small arachnoid cyst in the posterior fossa for which she is advised to follow-up with neurology for reevaluation. I have discussed with patient about symptoms/signs of worsening needing return to ER which she seems understanding. She has a nonfocal neuro exam throughout stay in the ER. Do not think she needs any further work-up and is stable for discharge. Blood Culture(s) Obtained: No Antibiotics given: No Counseled pt/family regarding: diagnosis, need for follow-up - Departure Departure Disposition: Home Clinical Impression: Arachnoid cyst Migraine Qualifiers: Migraine type: without aura Status migrainosus presence: without status migrainosus Intractability: not intractable Qualified Code(s): G43.009 - Migraine without aura, not intractable, without status migrainosus Condition: Stable Critical Care Time: No Referrals: TRACY WRAY MD [Primary Care Provider] - Follow Up with PCP/3 days MANDEEP NUR [NON-STAFF PHY W/O PRIVILEGES] - Follow Up with PCP/3 days (Call for appointment) Instructions: Migraines (DC) Additional Instructions: Drink plenty of fluids. Take Tylenol/ibuprofen as needed. Follow-up with neurology for reevaluation. Return to ER for any worsening.
[2019-10-20 21:13] VITALS: BP 111/73; PULSE 66
--- NOTE | 2019-10-20 21:46 | XRAY ---
Indication: Headache 2 months. Visual disturbance. Multiple contiguous axial images obtained through the head without contrast. Comparison: None Left posterior fossa demonstrates a 4.0 x 2.1 x 2.0 cm extra-axial mass isodense to cerebrospinal fluid favoring arachnoid cyst with mild mass effect. No acute intracranial hemorrhage, hydrocephalus, or midline shifting. Fourth ventricle is midline. Vazquez-white matter differentiation preserved. Bony calvarium intact. Visualized paranasal sinuses and mastoid air cells are clear. Impression: Left posterior fossa arachnoid cyst. Remaining CT head without contrast exam is negative.
== END 2019-10-20 21:19 | disposition home or self-care (01) ==
LOC: ED 18:17
DX: D32.1 Benign neoplasm of spinal meninges (principal); G43.009 Migraine without aura, not intractable, without status migrainosus
CPT/HCPCS: 36000; 70450; 84703; 96360; 96374; 96375; 99284; J1200; J1885; A9270-GY